=== PATIENT | female | born 1980 | race Caucasian/White ===

== ENCOUNTER 2024-04-01 17:43 | Emergency (ER) | payer MEDICAID, OTHER ==
[~2024-04-01] VITALS: Ht 157.5 cm; Wt 113.4 kg
[~2024-04-01 17:43] MED LIST: FOLI1TAB19 PO; OSC500 PO; PREN-385 PO
[2024-04-01 17:54] VITALS: BP 156/78; PULSE 101; RESP 20; TEMP 98.4; O2SAT 98
[2024-04-01] MEDS ORDERED: FLONAS NS (18:24)
== END 2024-04-01 18:34 | disposition home or self-care (01) ==
LOC: MED 17:43
DX: T17.1XXA Foreign body in nostril, initial encounter (principal); J31.0 Chronic rhinitis; R03.0 Elevated blood-pressure reading, without diagnosis of hypertension; Z79.899 Other long term (current) drug therapy; R21 Rash and other nonspecific skin eruption; L29.9 Pruritus, unspecified; J02.9 Acute pharyngitis, unspecified; W44.8XXA Other foreign body entering into or through a natural orifice, initial encounter; Y93.89 Activity, other specified; Y92.89 Other specified places as the place of occurrence of the external cause; Y99.8 Other external cause status
CPT/HCPCS: 99282